=== PATIENT | male | born 1995 | race Caucasian/White ===

== ENCOUNTER 2020-11-28 10:57 | Emergency (ER) | payer OTHER, SELFPAY ==
--- NOTE | ~2020-11-28 | XR_ITS ---
EXAMINATION: XR finger 5th RT min 2V INDICATION: Right fifth finger pain, initial encounter TECHNIQUE: Three views of the right fifth finger are obtained. COMPARISON: None available FINDINGS: There is an acute, traumatic, open fracture at the palmar aspect of the tuft of the fifth d istal phalanx. A large soft tissue defect is seen at the palmar aspect of the distal finger which con tains fragments of the distal phalanx. The joint spaces are normal. No additional acute osseous abnor mality is identified. IMPRESSION: 1. Open tuft fracture of the fifth distal phalanx with fragments of the tuft within a large soft tiss ue defect of the distal finger. Reviewed, dictated and finalized at location A. [employer] IMPRESSION: 1. Open tuft fracture of the fifth distal phalanx with fragments of the tuft wi thin a large soft tissue defect of the distal finger.
[2020-11-28 11:26] VITALS: BP 141/89; PULSE 72; RESP 16; TEMP 37.2; O2SAT 100
[2020-11-28] MEDS: TETANUS,DIPHTHERIA,AC PERTUSSIS ADULT (0.5 ML) BOOSTRIX IM (12:24)
--- NOTE | 2020-11-28 12:53 | ED.WOUNDLAC ---
HPI - Wound/Laceration General Chief Complaint: Wound/Laceration Stated Complaint: left hand injury with a palet nenita Time Seen by Provider: 11/28/20 11:59 History of Present Illness HPI narrative: Patient is a 25-year-old male who presents the ER with injury to his right fifth digit. He got it caught between a pallet nenita and column. Has loose skin and fat hanging from the distal aspect of his finger. That hanging piece of skin has loss of sensation. He retains range of motion to the finger. No additional injury. Unknown last tetanus shot. Related Data Allergies Allergy/AdvReac Type Severity Reaction Status Date / Time No Known Allergies Allergy Verified 11/28/20 11:31 Review of Systems Musculoskeletal: Musculoskeletal: Reports arthralgias Comments: Finger deformity right fifth. Integumentary/Breasts: Skin/Breast: Denies erythema and Denies rash Comments: Large skin avulsion right fifth digit. Neurologic: Denies focal weakness and Reports numbness PMFSH Past Medical History Medical History (Updated 11/28/20 @ 13:57 by Cristi Merritt MD) Healthy adult male Surgical History Surgical History (Updated 11/28/20 @ 12:54 by Cristi Merritt MD) No history of previous surgery Exam Narrative: Exam Narrative: GENERAL: Well-appearing, well-nourished, and in no acute distress. HEAD: Normocephalic, atraumatic. HEART: Regular rate and rhythm. Normal peripheral pulses EXTREMITIES: Focused exam of the right hand reveals a large avulsion/stellate laceration to the distal tip of the fifth finger at the fat pad. Sharp touch intact proximal to the wound. The filleted piece of skin has no sensation. Distal to the cut near the fingernail patient has pressure sensation and mild sharp touch sensation when compared to normal sensation of the proximal finger. Patient maintains full range of motion at the MCP/DIP/PIP.-year-old male there is no bone exposure or tendon exposure. SKIN: Warm, dry, no rash. NEURO: Alert and oriented x3. PSYCH: Normal mood and affect. Course Course Emergency Course: Discussed with Dr. Hidalgo who will have the patient follow up with him. Tetanus updated. Keflex 500mg TID. Vital Signs Vital signs: Vital Signs Temperature 98.9 F 11/28/20 11:26 Pulse Rate 72 11/28/20 11:26 Respiratory Rate 16 11/28/20 11:26 Blood Pressure 141/89 H 11/28/20 11:26 Pulse Oximetry 100 11/28/20 11:26 Temperature 98.9 F 11/28/20 11:26 Pulse Rate 72 11/28/20 11:26 Respiratory Rate 16 11/28/20 11:26 Blood Pressure 141/89 H 11/28/20 11:26 Pulse Oximetry 100 11/28/20 11:26 Procedures Laceration Laceration 1: Date: 11/28/20 Time: 13:47 Site: other (5th finger) Side (If applicable): right Description: stellate and irregular Depth: simple, single layer Local Anesthetic: lidocaine 1% and with epi Amount of anesthesia used (mL): 1.5 Pre-repair: wound explored and irrigated extensively ====== Skin Level ====== Skin layer closed with: vicryl Size (cm): 5-0 Number of sutures: 8 ====== Subcutaneous Layer ====== ====== Muscle Layer ====== ====== Tendon Layer ====== MDM - Wound/Laceration Imaging Data Radiologist's impression: ITS Impressions Finger X-Ray 11/28/20 12:40 IMPRESSION: 1. Open tuft fracture of the fifth distal phalanx with fragments of the tuft within a large soft tissue defect of the distal finger. Discharge Plan Discharge Clinical Impression: Avulsion of skin, Open fracture of tuft of distal phalanx of finger Patient Disposition: Home, Self-Care Condition: Stable Instructions: Antibiotic Form, Finger Fracture (ED), Finger Laceration (ED) Additional Instructions: Continue to observe your wound to make sure it does not become red and hot, it is not draining pus, you do not have red streaking up your hand, or that you develop fever over 100
[2020-11-28 13:30] VITALS: BP 128/77; PULSE 84; RESP 16; O2SAT 99
[2020-11-28] MEDS: CEPHALEXIN 500 MG CAPSULE PO (14:05)
== END 2020-11-28 14:43 | disposition home or self-care (01) ==
PROVIDERS: Emergency Provider Emergency Medicine
DX: S62.636B Displaced fracture of distal phalanx of right little finger, initial encounter for open fracture (principal); Z23 Encounter for immunization; W24.0XXA Contact with lifting devices, not elsewhere classified, initial encounter
CPT/HCPCS: 12001; 29130; 73140; 90471; 90715; 99284; A9270

== ENCOUNTER 2021-09-15 19:28 | Emergency (ER) | payer OTHER, SELFPAY ==
[2021-09-15 19:34] VITALS: BP 133/82; PULSE 91; RESP 20; TEMP 37.1; O2SAT 99
--- NOTE | 2021-09-15 20:09 | ED.URI ---
HPI - URI/Sore Throat General Chief Complaint: Upper Respiratory Infection Stated Complaint: aches sore throat congestion Source: patient and RN notes reviewed Mode of arrival: ambulatory History of Present Illness HPI Narrative: This is a 26-year-old male that presented to urgent care with a sore throat according to patient he developed a sore throat overnight. He did not do anything at home to relieve his symptoms. The patient denies SOB, CP, palpitation, extremity numbness, lightheadedness, dizziness, constipation, diarrhea, chills, or fever. Patient tested positive for strep Related Data Allergies Allergy/AdvReac Type Severity Reaction Status Date / Time No Known Allergies Allergy Verified 09/15/21 19:59 Review of Systems Review of Systems: A 14 organ system Review of Systems was performed and pertinent positives included in the HPI, otherwise remaining ROS is negative. [facility] Past Medical History Medical History Healthy adult male Surgical History Surgical History No history of previous surgery Family History Family History (Updated 09/15/21 @ 20:10 by JOSE ARMANDO Blanco) Other Family history non-contributory Exam Narrative: GENERAL: This is a well-nourished, well-developed patient, in no apparent distress. HEAD: normocephalic, atraumatic. EYES: PERRL. Sclera clear/white. Vision is grossly intact. EARS: External ears normal, auditory canals clear and without drainage, TMs normal without perforation. Hearing grossly intact. NOSE: External nose normal with no obvious nasal discharge, nares without redness, no rhinorrhea. THROAT: Mucous membranes moist, posterior pharynx edematous with erythema. Enlarged tonsils NECK: Neck supple, non-tender without lymphadenopathy, masses or thyromegaly. CARDIOVASCULAR: Regular rate and rhythm without murmurs, gallops, or rubs. RESPIRATORY: Clear to auscultation. Breath sounds equal bilaterally. No wheezes, rales, or rhonchi. GASTROINTESTINAL: Abdomen soft, non-tender, nondistended. Bowel sounds are active. No hepato-splenomegaly, or palpable masses. No guarding. SKIN: warm, intact with no suspicious lesions or rash, good texture and turgor. NEURO: awake, alert, and oriented to person, place and time. There were no obvious focal neurologic abnormalities. Steady gait EXTREMITIES: Normal range of motion. No edema. No calf tenderness. Negative Homans sign bilaterally. BACK: Nontender without deformity or crepitance. No flank tenderness. Course Course Emergency Course: Patient will be treated for strep with Augmentin x10 days Vital Signs Vital signs: Vital Signs Temperature 98.8 F 09/15/21 19:34 Pulse Rate 91 09/15/21 19:34 Respiratory Rate 20 09/15/21 19:34 Blood Pressure 133/82 09/15/21 19:34 Pulse Oximetry 99 09/15/21 19:34 Temperature 98.8 F 09/15/21 19:34 Pulse Rate 91 09/15/21 19:34 Respiratory Rate 20 09/15/21 19:34 Blood Pressure 133/82 09/15/21 19:34 Pulse Oximetry 99 09/15/21 19:34 MDM - URI/Sore Throat Differential Diagnosis Differential diagnosis: Likely upper respiratory infection, sinusitis, viral infection, influenza and pharyngitis Lab Data Labs: Strep Screen Positive Group A Strep *(Reference Range: Negative)* Discharge Plan Discharge Clinical Impression: Strep pharyngitis Patient Disposition: Home, Self-Care Condition: Stable Instructions: Antibiotic Form, Strep Throat (ED) Additional Instructions: -Eat things that are easy to swallow, like tea or soup, or popsicles to suck on. -Oral rinses such as: Salt water gargles and/or may use topical anesthetic (eg. Chloraseptic spray) or lozenges to relieve dryness or throat pain. -Take tylenol and ibuprofen as needed for pain and fever as directed. -Frequent hand washing or h
== END 2021-09-15 20:13 | disposition home or self-care (01) ==
PROVIDERS: Emergency Provider Nurse Practitioner
DX: J02.0 Streptococcal pharyngitis (principal); Z20.822 Contact with and (suspected) exposure to COVID-19
CPT/HCPCS: 87880; 99213; G0463

== ENCOUNTER → 2021-09-16 10:32 | Outpatient (CLI) | payer OTHER, SELFPAY ==
[2021-09-17 13:33] LABS: SARS-CoV-2 RNA PCR Negative
== END ==
PROVIDERS: Visit Provider Nurse Practitioner
DX: R68.89 Other general symptoms and signs (principal); Z20.822 Contact with and (suspected) exposure to COVID-19
CPT/HCPCS: C9803; U0003; U0005

== ENCOUNTER 2022-02-02 10:40 | Emergency (ER) | payer OTHER, SELFPAY ==
[2022-02-02 11:05] VITALS: BP 120/63; PULSE 78; RESP 18; TEMP 36.3; O2SAT 100
--- NOTE | 2022-02-02 11:22 | ED.URI ---
HPI - URI/Sore Throat General Chief Complaint: Upper Respiratory Infection Stated Complaint: Sore Throat Time Seen by Provider: 02/02/22 11:22 Source: patient and RN notes reviewed Mode of arrival: ambulatory Limitations: no limitations History of Present Illness HPI Narrative: 26-year-old male presented for complaint of sore throat and sinus congestion for about 3 days. He endorses his girlfriend is sick as well. Denies shortness of breath, wheezing, nausea, vomiting, diarrhea, fevers or chills. Taking DayQuil and Tylenol for symptoms. He is not boosted or vaccinated for flu. MD elicited complaint: cough and sore throat Related Data Home Medications Medication Instructions Recorded Confirmed No Home Medications 02/02/22 02/02/22 Allergies Allergy/AdvReac Type Severity Reaction Status Date / Time No Known Allergies Allergy Verified 02/02/22 11:12 Review of Systems Review of Systems: CONSTITUTIONAL: Denies malaise, chills, sweats, fever EYES: Denies visual changes, redness, or discharge ENT: Reports rhinorrhea, congestion, sore throat CARDIOVASCULAR: Denies chest pain, palpitations, edema RESPIRATORY: Reports cough, post nasal drainage. Denies dyspnea GASTROINTESTINAL: Denies abdominal pain, nausea, vomiting, diarrhea SKIN: Denies rash or itching MUSCULOSKELETAL: Denies myalgia NEUROLOGIC: Denies headache PMFSH Past Medical History Medical History Healthy adult male Surgical History Surgical History No history of previous surgery Family History Family History Other Family history non-contributory Exam Narrative: GENERAL: Ill-appearing, nontoxic HEAD: Normocephalic EYES:conjunctivae clear ENT: Mucous membranes moist. TM pearly oneil with dull light reflex bilaterally; no tragal tenderness. Oropharynx erythematous with chronically enlarged tonsils 2+ without lesions or exudate, no drooling, no hoarseness, no trismus, uvula midline. No tripod positioning, muffled voice, soft palate or pharyngeal wall bulging NECK: Supple. No lymphadenopathy CHEST: Clear to auscultation, breath sounds equal. No wheezing, rhonchi, rales, or stridor. No respiratory distress, speaks in full sentences. HEART: Regular rate and rhythm. No murmur heard. SKIN: Warm, dry, no rash. NEURO: Alert and oriented x3. PSYCH: Normal mood and affect Course Course Emergency Course: Patient is aware of diagnosis, understands and agrees to treatment plan. Anticipatory guidance given. Patient agrees to follow-up as directed and is aware of reasons to seek care at the emergency department. Portions of this record may have been created with voice recognition software Level of Care: Express Care Visit Vital Signs Vital signs: Vital Signs Temperature 97.3 F L 02/02/22 11:05 Pulse Rate 78 02/02/22 11:05 Respiratory Rate 18 02/02/22 11:05 Blood Pressure 120/63 02/02/22 11:05 Pulse Oximetry 100 02/02/22 11:05 Temperature 97.3 F L 02/02/22 11:05 Pulse Rate 78 02/02/22 11:05 Respiratory Rate 18 02/02/22 11:05 Blood Pressure 120/63 02/02/22 11:05 Pulse Oximetry 100 02/02/22 11:05 reviewed MDM - URI/Sore Throat Differential Diagnosis Differential diagnosis: Likely upper respiratory infection, sinusitis, viral infection and pharyngitis Lab Data Attestation: I reviewed the patient's lab results. Labs: Strep Screen Presumptive Negative *(Reference Range: Negative)* Discharge Plan Discharge Clinical Impression: Allergic rhinitis Qualifiers: Allergic rhinitis trigger: unspecified Allergic rhinitis seasonality: unspecified Qualified Code(s): J30.9 - Allergic rhinitis, unspecified Patient Disposition: Home, Self-Care Condition: Stable Instructions: Antibiotic For
== END 2022-02-02 11:30 | disposition home or self-care (01) ==
PROVIDERS: Emergency Provider Nurse Practitioner Family
DX: J30.9 Allergic rhinitis, unspecified (principal)
CPT/HCPCS: 87081; 87880; 99213; G0463